=== PATIENT | female | born 1945 | race Caucasian/White ===

== ENCOUNTER 2019-09-11 05:41 | Inpatient (IN) ==
[2019-09-11] MEDS ORDERED: POLYETHYLENE (MIRALAX) 17 GM PACK PO PRN (07:34)
[2019-09-11] MEDS ORDERED: ONDANSETRON INJ 2 MG/ML 2 ML VIAL IV PRN (07:34)
[2019-09-11] MEDS ORDERED: ACETAMINOPHEN 325 MG TAB PO PRN (07:34)
--- OUTSIDE RECORDS SUMMARY | 2019-09-11 07:45 | External Medical Summary | Continuity of Care Document ---
:1945 Author Name Laly Gann, Provider Address Unavailable Unavailable , Care Team Providers Name Role Phone [facility] Sanjuanita, Provider Unavailable [email or web address] [email or web address], UNKNOWN Unavailable Unavailable Problems Active medical history not documented Allergies and Adverse Reactions Allergy history not documented Medications Medications not documented Procedures Procedures not documented Immunizations Immunizations not documented Plan of Treatment Planned Observations Planned Goals not documented Results No Known Results Results not documented
[2019-09-11 08:44] LABS: INR 1.5 (0.9-1.1); Prothrombin Time 15.4 Seconds (9.0-12.0)
[2019-09-11 08:47] LABS: Est GFR (African American) 40.7; Est GFR (Non-African American) 35.1
[2019-09-11] MEDS ORDERED: ALBUT/IPRATROP 3MG/0.5MG NEB 3 ML VIAL NEB PRN (09:21)
[2019-09-11] MEDS ORDERED: SODIUM CHLORIDE 0.9% 1000ML 1,000 ML IV SCH (09:30)
[2019-09-11] MEDS ORDERED: CEFEPIME 1,000 MG in SYRINGE 0 ML IV ONE (09:45)
--- NOTE | 2019-09-11 10:02 | Medical Student H&P ---
Date of Service September 11, 2019 Assessment & Plan (1) S/P TKR (total knee replacement): (2) Hospital acquired PNA: Continue antibiotic coverage with double coverage of psuedomonas (expected hospital aquired pneumonia). Give IV NS for fluid resuscitation. Possible sputum culture. (3) Lung mass: Possible risk for recurrent infection. Consult Pulmonology to review CT and see if they can perform biopsy. If not she may need to see cardiothoractic surgery elsewhere. (4) Acute kidney injury: IV Fluids and monitor BUN and Cr. History of Present Illness Primary Care Provider: NO PCP Mrs. Barcenas is a 74 year old female who is being transferred from [place]. EMS initially picked up Rita due to a fall with decreased consciousness. EMS found an SpO2 of 72% which improved to 84% with 6L O2, so she was brought to the ED. [facility] lue[facility]ocytosis at 12.79 with a left shit (79.3%) and metabolic acidosis with an anion gap of 10.8 consistent with MARLEY due to dehydration. A chest CT was done and showed suspected pnuemonia, and un right upper lobe mass with enlarged suprahilar lymph nodes with concern for malignancy. She was given cefipime and vancomycin for suspected pneumonia. Rita was transferred to [facility] due to a lack of beds. Today Rita is short of breath and is having a hard time talking. It is easier for her to talk and breath sitting upright. She reports that she has been SOB and has had a cough for over a week. She reports that she has had pneumonia twice before. Allergies Allergy/AdvReac Type Severity Reaction Status Date / Time ibuprofen AdvReac Unknown GI upset Verified 11/13/14 09:06 Home Medications Home Medications Medication Instructions Recorded Confirmed Type Alprazolam (Xanax) 1 mg PO HS PRN #0 06/11/10 History Lamotrigine (Lamictal) 200 mg PO QAM #0 06/11/10 History Montelukast (Singulair *) 10 mg PO QAM #0 06/11/10 History OMEPRAZOLE (PRILOSEC) 20 mg PO QAM #0 06/11/10 History Carvedilol (Coreg *) 3.125 mg PO BID #0 06/12/10 History Citalopram (Celexa *) 60 mg PO QAM #0 06/12/10 History Multivitamins/Minerals (Mvi With 1 tab PO QPM #0 06/12/10 History Minerals) Lisinopril (Zestril) 10 mg PO QAM #0 06/15/10 History CYANOCOBALAMIN (VITAMIN B12) 1,000 mcg PO QPM #0 10/16/14 History Cholecalciferol (Vitamin D3) 1,000 unit PO QPM #0 10/16/14 History Magnesium Oxide (Magnesium) 400 mg PO QPM #0 10/16/14 History Tocopheryl Acet,Dl-Alpha (Vitamin 400 inter.unit PO QPM #0 cap 10/16/14 History E) Aspirin 325 mg PO BID 28 Days #0 11/15/14 Rx Docusate Sodium 100 mg PO BID #30 cap 11/15/14 Rx Hydrocodone/Acetaminophen 1 - 2 tab PO Q4H PRN #90 tab 11/15/14 Rx 5MG/325MG ([place] 5MG/325MG) Oxycodone HCl (Oxycontin) 10 mg PO BIDM #20 11/15/14 Rx Past Med/Surg History Medical History (Updated 09/11/19 @ 10:06 by Mattie Patel) Bipolar 1 disorder (Acute) Carpal tunnel syndrome (Acute) COPD (chronic obstructive pulmonary disease) (Acute) Coronary artery disease (CAD) excluded (Acute) Myocardial infarct (Acute) Sleep apnea (Acute) Family History (Updated 09/11/19 @ 09:58 by Mattie Patel) Father Cancer Mother Cancer Other Asthma COPD (chronic obstructive pulmonary disease) Denies family history of Alzheimer disease Social History (Updated 09/11/19 @ 09:57 by Mattie Patel) Smoking Status: Current every day smoker Tobacco Type: Cigarettes Age Started Using Tobacco: 15; packs per day: 1; Hx Alcohol Use: Yes Hx Substance Use: Yes marital status: single Current Living Situation: Alone current occupational status: retired How many Children do You have: 0 Review of Systems + fever, + sweats and + anorexia + cough, + chest congestion, + change in sputum, + dyspnea and + pain on inspiration Physical Exam Constitutional: + ill appearing, + obese and + lethargic Eyes: PERRL and EOM intact bilaterally ENMT: external ear and nose normal, oropharynx normal Neck: trachea midline, no thyromegaly normal visual inspection Thyroid: normal thyroid Respiratory: + respiratory distress and normal percussion Auscultation: + crackles, + rales and + egophony Cardiovascular: RRR, no murmur, no edema Chest (Breasts): normal inspection/palpation of breasts Gastrointestinal (Abdomen): Inspection/Auscultation: abdomen normal to inspection Percussion/Palpation: abdomen soft Musculoskeletal: no cyanosis or clubbing, extremities motor strength 5/5 Skin: no rashes, warm and dry Neurologic: PERRL, EOMI, accommodation nl, no face palsy, no dysarthria normal touch/pain/proprioception Psychiatric: A+Ox3, euthymic affect Lymphatic: no cervical or axillary lymphadenopathy Code Status & VTE Plan VTE Prophylaxis Plan VTE Prophylaxis will be ordered: Yes
[2019-09-11] MEDS: PATIENT'S HEIGHT AND/OR WEIGHT NEEDED SCH (10:32)
[2019-09-11] MEDS ORDERED: levoFLOXacin 750 MG TAB PO SCH (11:00)
--- NOTE | 2019-09-11 11:03 | History & Physical Report ---
Date of Service September 11, 2019 Assessment & Plan (1) HCAP (healthcare-associated pneumonia): recent pneumonia, now with productive cough, confusion, pneumonia on CT will treat with Cefepime and Levaquin initially, she received Vanco at [place], check MRSA nasal swab here repeat labs in the afternoon, including CBC, CMP, procalcitonin, coags Duonebs QID and q2 PRN gentle fluids at 80cc/hr, NSS consult pulmonology not just for the recurrent pneumonia but for recommendations on spiculated nodule (2) Acute kidney injury: Cr 1.9 at [facility], received fluids likely prerenal as repeat Cr here this morning down to 1.4 follow UO closely, follow electrolytes hold lisinopril and avoid other nephrotoxins (3) Lung nodule seen on imaging study: 50-60 pack year history of smoking will have CT uploaded to our system so radiology and pulmonology can view consult pulmonology for recommendations per patient's friend Ismael, patient knows about the lung mass wants no work up, no treatment, comfort would be her goal (4) Tobacco abuse: still smokes a few cigarettes a day, heavy smoking history counseled on quitting (5) COPD (chronic obstructive pulmonary disease): no wheezing, has a wet cough, rhonchi bilaterally no role for steroids at this time Duonebs as ordered above (6) Confusion and disorientation: patient believes she is in [facility] cannot give me any details of recent history, does not remember coming to hospital per reports she was found down in her home, hypoxic on room air her friend Ismael talked to her on the phone, confirms that she is not herself use Ativan and Haldol PRN for agitation (7) Goals of care, counseling/discussion: long discussion with patient's friend Ismael who is her primary contact patient is aware of lung cancer, was even told she has lung mets she does not want work up, does not want treatment, she only wants to be comfortable she stated to Ismael on several occasions that she does not want life saving measures she has a living will filled out at her apartment but has not signed it made the patient DNR/DNI will use Haldol IM and Ativan IV PRN for aggitation, try to get her to cooperate with care if possible Admission and Anticipated Discharge Date Admission Date: September 11, 2019 History of Present Illness Chief Complaint: I don't know what I am doing here Primary Care Provider: NO PCP 74 yo female with history of COPD who was transferred early this morning to [facility] from [facility]. The patient was brought to the ED by EMS after she was found on the floor of her home, she was confused, decreased responsiveness and her oxygen saturation was reported to be in the low 70's on room air. She was rushed to the ED at [facility]. Her vitals were stable, no fever. CT of the chest showed a right upper lobe mass with a right sided pleural effusion. There was also evidence of pneumonia on the right side. Per records, she was just treated for a right sided obstructive pneumonia at [facility] a few weeks ago. Transfer was requested because there were no beds at [place]. She was given one liter NSS and Cefepime and Vancomycin. Upon her arrival the patient stated that she just wanted to go home, she did not know why she was in the hospital, she thought she was in [facility]. She could not provide any real history. I discussed the CT chest findings of the mass and she seemed to know that she had a potential lung cancer but could not provide any further history. I called her primary contact, her best friend Ismael Herrmann. She could tell me what the patient has told her over the past weeks, she admits that she never has gone to the doctor's office with her and she has not spoken directly to her doctors in the [facility] system. She said that the patient has told her that she has a lesion in her lung, likely lung cancer. She also has told her that she had imaging of her brain and her doctor told her that she has brain mets. She has had weakness in her right arm and hand the past three weeks and she was told that this is due to the mets. The patient has been very clear to Ismael that she wants nothing done for the lung lesion. She does not want any biopsy, she does not want any treatment. She has been clear that she wants to be comfortable above all else. I asked her if she has a living will and if Ismael is her POA. She says that she has not completed that paper work but she knows that she has a living will form in her apartment that she has not signed. She said that she has clearly told her that she would not want heroic measures, she should be a DNR, DNI. I called the patient's brother Kit. He is the only living relative. He has had two strokes and a heart attack in the past year. His told me that he is forgetful. She says that they have not seen the patient in some time because Kit cannot drive, they live in the [place] area. His confirmed that Ismael is the patient's closest friend and knows her wishes and knows what has been going on recently better than they know. Allergies Allergy/AdvReac Type Severity Reaction Status Date / Time ibuprofen AdvReac Unknown GI upset Verified 11/13/14 09:06 Home Medications Home Medications Medication Instructions Recorded Confirmed Type Alprazolam (Xanax) 1 mg PO HS PRN #0 06/11/10 History Lamotrigine (Lamictal) 200 mg PO QAM #0 06/11/10 History Montelukast (Singulair *) 10 mg PO QAM #0 06/11/10 History OMEPRAZOLE (PRILOSEC) 20 mg PO QAM #0 06/11/10 History Carvedilol (Coreg *) 3.125 mg PO BID #0 06/12/10 History Citalopram (Celexa *) 60 mg PO QAM #0 06/12/10 History Multivitamins/Minerals (Mvi With 1 tab PO QPM #0 06/12/10 History Minerals) Lisinopril (Zestril) 10 mg PO QAM #0 06/15/10 History CYANOCOBALAMIN (VITAMIN B12) 1,000 mcg PO QPM #0 10/16/14 History Cholecalciferol (Vitamin D3) 1,000 unit PO QPM #0 10/16/14 History Magnesium Oxide (Magnesium) 400 mg PO QPM #0 10/16/14 History Tocopheryl Acet,Dl-Alpha (Vitamin 400 inter.unit PO QPM #0 cap 10/16/14 History E) Aspirin 325 mg PO BID 28 Days #0 11/15/14 Rx Docusate Sodium 100 mg PO BID #30 cap 11/15/14 Rx Hydrocodone/Acetaminophen 1 - 2 tab PO Q4H PRN #90 tab 11/15/14 Rx 5MG/325MG ([place] 5MG/325MG) Oxycodone HCl (Oxycontin) 10 mg PO BIDM #20 10/09/15 Rx Past Med/Surg History Medical History Bipolar 1 disorder (Acute) Carpal tunnel syndrome (Acute) COPD (chronic obstructive pulmonary disease) (Acute) Coronary artery disease (CAD) excluded (Acute) Myocardial infarct (Acute) Sleep apnea (Acute) Family History Father Cancer Mother Cancer Other Asthma COPD (chronic obstructive pulmonary disease) Denies family history of Alzheimer disease Social History Smoking Status: Current every day smoker Tobacco Type: Cigarettes Age Started Using Tobacco: 15; packs per day: 1; Hx Alcohol Use: Yes Hx Substance Use: Yes Preferred Language: Central African Communication Ability: Effective Third Mate Required: No Beliefs That Will Affect Care: None marital status: single Current Living Situation: Alone current occupational status: retired How many Children do You have: 0 Feels Safe at Home: Yes Safety Concerns: Feels Safe At This Time Review of Systems Review of Systems: Unobtainable due to cognitive status (confused, agitated) Physical Exam Constitutional: + ill appearing, + frail appearing, + in distress (respiratory) and + combative; + uncooperative Eyes: PERRL, conjunctivae normal, anicteric sclerae ENMT: external ear and nose normal, oropharynx normal Neck: trachea midline, no thyromegaly Respiratory: + labored breathing, + cough and + pursed lip breathing Auscultation: + diminished lung sounds (right base), + crackles and + rhonchi; no rales and no wheezes Cardiovascular: Rate/Rhythm: regular rhythm and + tachycardic Heart Sounds: normal S1 and normal S2; no murmur Extremities: normal capillary refill; no edema Gastrointestinal (Abdomen): normal bowel sounds, soft, nontender, no hepatosplenomegaly Musculoskeletal: no cyanosis or clubbing, extremities motor strength 5/5 Skin: no rashes, warm and dry Neurologic: patellar DTR's 2+ bilat, sensation intact and PERRL, EOMI, accommodation nl, no face palsy, no dysarthria Psychiatric: Orientation: alert, oriented to person and + guarded; + not oriented to place, + not oriented to time and + uncooperative Lymphatic: no cervical or axillary lymphadenopathy Results & Data Results & Data ([facility]) Vital Signs (Past 12 Hours) Vital Signs Temp Pulse Resp BP Pulse Ox 09/11/19 07:51 36.9 C 74 12 127/74 94 Laboratory Results Laboratory Results - last 24 hr 09/11/19 09/11/19 09/11/19 08:18 08:18 19:43 WBC 16.67 H RBC 3.44 L Hgb 11.1 L Hct 33.7 L MCV 98.0 MCH 32.3 MCHC 32.9 RDW Std Deviation 46.7 H RDW Coeff of Yosef 13.1 Plt Count 165 MPV 10.1 Immature Gran % (Auto) 0.5 Neut % (Auto) 77.4 Lymph % (Auto) 15.5 Norman % (Auto) 6.1 Eos % (Auto) 0.4 Baso % (Auto) 0.1 Neut # (Auto) 12.89 H Lymph # (Auto) 2.59 Norman # (Auto) 1.02 H Eos # (Auto) 0.07 Baso # (Auto) 0.02 Immature Gran # (Auto) 0.08 H PT 15.4 H INR 1.5 H APTT PTT Ratio ABG pH ABG pCO2 ABG pO2 ABG HCO3 ABG O2 Saturation ABG Base Excess Julio Test Barometric Pressure Oxygen Given Sodium Potassium Chloride Carbon Dioxide Anion Gap BUN Creatinine 1.46 H Est Cr Clr Drug Dosing Not Reportable Est GFR ( Amer) 40.7 Est GFR (Non-Af Amer) 35.1 BUN/Creatinine Ratio Glucose Calcium Total Bilirubin Direct Bilirubin AST ALT Alkaline Phosphatase Total Protein Albumin Procalcitonin Nasal Screen MRSA (PCR) 09/11/19 09/11/19 09/11/19 19:43 19:43 19:43 WBC RBC Hgb Hct MCV MCH MCHC RDW Std Deviation RDW Coeff of Yosef Plt Count MPV Immature Gran % (Auto) Neut % (Auto) Lymph % (Auto) Norman % (Auto) Eos % (Auto) Baso % (Auto) Neut # (Auto) Lymph # (Auto) Norman # (Auto) Eos # (Auto) Baso # (Auto) Immature Gran # (Auto) PT 15.7 H INR 1.5 H APTT 41.9 H PTT Ratio 1.5 ABG pH ABG pCO2 ABG pO2 ABG HCO3 ABG O2 Saturation ABG Base Excess Julio Test Barometric Pressure Oxygen Given Sodium 137 Potassium 3.6 Chloride 103 Carbon Dioxide 22 Anion Gap 12.0 H BUN 23 H Creatinine 1.10 D Est Cr Clr Drug Dosing 47.7 Est GFR ( Amer) 57.3 Est GFR (Non-Af Amer) 49.4 BUN/Creatinine Ratio 21.2 H Glucose 129 H Calcium 9.0 Total Bilirubin 0.6 Direct Bilirubin 0.2 AST 50 H ALT 14 Alkaline Phosphatase 109 Total Protein 6.0 L Albumin 2.5 L Procalcitonin 0.23 Nasal Screen MRSA (PCR) 09/11/19 09/11/19 19:43 Unknown WBC RBC Hgb Hct MCV MCH MCHC RDW Std Deviation RDW Coeff of Yosef Plt Count MPV Immature Gran % (Auto) Neut % (Auto) Lymph % (Auto) Norman % (Auto) Eos % (Auto) Baso % (Auto) Neut # (Auto) Lymph # (Auto) Norman # (Auto) Eos # (Auto) Baso # (Auto) Immature Gran # (Auto) PT INR APTT PTT Ratio ABG pH 7.30 L ABG pCO2 47 H ABG pO2 64 L ABG HCO3 22 ABG O2 Saturation 87.6 L ABG Base Excess -4.3 Julio Test Pos Barometric Pressure 728.7 Oxygen Given 6 L Sodium Potassium Chloride Carbon Dioxide Anion Gap BUN Creatinine Est Cr Clr Drug Dosing Est GFR ( Amer) Est GFR (Non-Af Amer) BUN/Creatinine Ratio Glucose Calcium Total Bilirubin Direct Bilirubin AST ALT Alkaline Phosphatase Total Protein Albumin Procalcitonin Nasal Screen MRSA (PCR) Negative Code Status & VTE Plan VTE Prophylaxis Plan VTE Prophylaxis will be ordered: Yes PG Care Time/CCT Total # of Minutes Spent Total Time Spent: 100 Total Time Spent with Patient: Total time spent is greater than 50% in coordination of care (as documented) at patient's floor/unit and/or counseling patient: Coding Level of Care Code 53044 Initial Inpt Care Lvl 3 Diagnoses HCAP (healthcare-associated pneumonia) J18.9 Acute kidney injury N17.9 Lung nodule seen on imaging study R91.1 Tobacco abuse Z72.0 COPD (chronic obstructive pulmonary disease) J44.9 Confusion and disorientation R41.0 Goals of care, counseling/discussion Z71.89
[2019-09-11] MEDS: ALBUT/IPRATROP 3MG/0.5MG NEB 3 ML VIAL NEB SCH ×3 (11:24→19:22)
[2019-09-11] MEDS: ENOXAPARIN INJ 40 MG/0.4 ML SYR SQ SCH (11:34)
--- NOTE | 2019-09-11 13:45 | Pulmonary Consultation ---
Date of Consultation September 11, 2019 Assessment & Plan (1) Lung mass: Patient has a 2.1 x 2 x 2.1 cm spiculated mass within the right upper lobe. This seems to be enlarged from CT contrast 05/25/2019 where he was previously found to be 1.4 x 1.6 x 1.2 cm Images are not available in PACS but report was acquired from [facility] We do have a CD with images with viewing software from [employer]. We will have Dr. Whitten review images to determine plan of action Patient was significant past tobacco abuse history including cigarettes and marijuana. Current everyday smoker (2) Hospital acquired PNA: Patient reports that she had pneumonia previously She is found to have some consolidation in the right middle loop as well as groundglass opacities in the right lower lobe Agree with treating with antibiotics We will also add flutter valve and incentive spirometer Currently 96% on 3 L/min via nasal cannula No acute respiratory distress (3) Tobacco abuse: Patient admits to smoking cigarettes daily but says that she has cut back Discussed need for abstention of tobacco products to which patient started to laugh and stated that she was too old to quit (4) COPD (chronic obstructive pulmonary disease): Unknown if patient has had pulmonary function testing in the past She is unsure if she has seen a shareholder or has been formally diagnosed with lung disease She is unaware of any malignancy, mass, nodules although they are present on c hest x-ray and CT chest Continue with duo nebs for now We will also add incentive spirometry and flutter valve No indication for steroids at this time Thank you very much for including us in the care of this patient. We will continue to follow along with you and help develop a plan of care. Please refer to Dr. Whitten's addendum for further recommendations and corrections. Supervising Physician Co-Signing Physician Notes Pt seen and examined with Westley Patterson PA-C. Agree with A/P as outlined unless otherwise noted: Suspect likely stage 4 disease given pleural effusion. Also, upon discussion with hospitalist, patient reportedly had evidence of brain mets on prior imaging and refused biopsy and treatment. At this time, patient is highly verbally combative and clearly delirious. Consider hypercalcemia, hypercapnia and brain mets as source of confusion. Patient apparently refused labs. Will follow peripherally for now. Please call if condition changes and patient or POA would like to purse tissue sample. Would treat post-obstructive pna with 7 days of abx. Thanks for the consult. History of Present Illness Attending Physician: Beka Knight DO History of Present Illness Attending: Dr. Whitten Is a 74-year-old female with a past medical history of ethanol abuse, anxiety, asthma, bipolar disease, CAD, COPD, degenerative joint disease, depression, falls, fibromyalgia, GERD, hyperlipidemia, hypertension, marijuana use, obesity, osteoarthritis of knee, panic attacks, pulmonary nodule, sleep apnea, urinary incontinence. The patient presented to the [place] emergency room for shortness of breath. She was brought by ambulance and was found to be on the floor at home where she slipped out of a chair. Initial oxygen saturation for EMS on room air was 72%. She was placed on a 15 L nonrebreather and recovered to greater than 90%. She reports that she had increased shortness of breath for the last day or 2 and feels it is recurrent pneumonia. She denies any significant sputum production over the last 2 or 3 days but today notes whitish type sputum. She seems to be somewhat demented during the course of my examination but is easily reoriented. She denies any fever or chills. She has no hemoptysis. She has no myalgias or arthralgias. She denies any other recent sick contacts. The patient lives that [facility] which is a senior citizen apartment building. She states that she uses her motorized wheelchair to go shopping at the [employer] next door to her complex. She initially stated that she had no children but then states that she has children out of the area. She lives alone and has no pets. She denies any prior history of malignancy. When asked about imaging at [place] she denies chest x-ray or CAT scan and is unaware of a pul monary nodule or mass. Allergies Allergy/AdvReac Type Severity Reaction Status Date / Time ibuprofen AdvReac Unknown GI upset Verified 11/13/14 09:06 Home Medications Home Medications Medication Instructions Recorded Confirmed Type Alprazolam (Xanax) 1 mg PO HS PRN #0 06/11/10 History Lamotrigine (Lamictal) 200 mg PO QAM #0 06/11/10 History Montelukast (Singulair *) 10 mg PO QAM #0 06/11/10 History OMEPRAZOLE (PRILOSEC) 20 mg PO QAM #0 06/11/10 History Carvedilol (Coreg *) 3.125 mg PO BID #0 06/12/10 History Citalopram (Celexa *) 60 mg PO QAM #0 06/12/10 History Multivitamins/Minerals (Mvi With 1 tab PO QPM #0 06/12/10 History Minerals) Lisinopril (Zestril) 10 mg PO QAM #0 06/15/10 History CYANOCOBALAMIN (VITAMIN B12) 1,000 mcg PO QPM #0 10/16/14 History Cholecalciferol (Vitamin D3) 1,000 unit PO QPM #0 10/16/14 History Magnesium Oxide (Magnesium) 400 mg PO QPM #0 10/16/14 History Tocopheryl Acet,Dl-Alpha (Vitamin 400 inter.unit PO QPM #0 cap 10/16/14 History E) Aspirin 325 mg PO BID 28 Days #0 11/15/14 Rx Docusate Sodium 100 mg PO BID #30 cap 11/15/14 Rx Hydrocodone/Acetaminophen 1 - 2 tab PO Q4H PRN #90 tab 11/15/14 Rx 5MG/325MG ([place] 5MG/325MG) Oxycodone HCl (Oxycontin) 10 mg PO BIDM #20 11/15/14 Rx Patient History Medical History Bipolar 1 disorder (Acute) Carpal tunnel syndrome (Acute) COPD (chronic obstructive pulmonary disease) (Acute) Coronary artery disease (CAD) excluded (Acute) Myocardial infarct (Acute) Sleep apnea (Acute) Family History Father Cancer Mother Cancer Other Asthma COPD (chronic obstructive pulmonary disease) Denies family history of Alzheimer disease Social History Smoking Status: Current every day smoker Tobacco Type: Cigarettes Age Started Using Tobacco: 15; packs per day: 1; Hx Alcohol Use: Yes Hx Substance Use: Yes Preferred Language: Indonesian Communication Ability: Effective Manager Utilization Required: No Beliefs That Will Affect Care: None marital status: single Current Living Situation: Alone current occupational status: retired How many Children do You have: 0 Feels Safe at Home: Yes Safety Concerns: Feels Safe At This Time Review of Systems Review of Systems: All systems reviewed & are unremarkable except as noted in HPI & below Physical Exam Physical Exam: GENERAL : No acute distress EYES: No icterus, gaze conjugate NOSE: No evidence of epistaxis MOUTH: No lesions or candidiasis NECK: Supple LUNGS: Patient has coarse rales at the bilateral bases. There is also some evidence above her field rhonchi. HEART: Regular, rate controlled ABDOMEN: Soft, NT, ND, BS Present EXTREMITIES: No LE edema, pedal pulses intact NEURO: A&OX3 with some confusion. Easily reoriented. Results & Data Results & Data ([facility]) Vital Signs (Past 12 Hours) Vital Signs Temp Pulse Pulse Resp BP Pulse Ox 09/11/19 12:02 36.9 C 77 19 130/72 96 09/11/19 11:26 76 22 97 09/11/19 07:51 36.9 C 74 12 127/74 94 Laboratory Results 09/11/19 08:18 INR 1.5 (0.9-1.1) H 09/11/19 08:[address] thorax with contrast 09/11/2019 1:11 AM Findings: Lungs: Diffuse interlobular septal thickening seen throughout the right lung wor se in the right lung apex. Interval increase in size of a spiculated mass within the right upper lobe along the minor fissure measuring 2.1 x 2 x 2.1 cm. This was previously measured at 1.4 x 1.6 x 1.2 cm. There is a small consolidation in the dependent aspect of the right middle lobe and diffuse groundglass opacities seen throughout the right lower lobe. This is most likely subsegmental atelectasis. Pleural space: There is also a moderate-sized pleural effusion on the right. There is no evidence of pneumothorax. Lymph nodes: There is no mediastinal or axillary adenopathy. There is soft tissue prominence in the right suprahilar region suspect to represent enlarged hilar lymph node. PG Care Time/CCT Total # of Minutes Spent Total Time Spent with Patient: Total time spent is greater than 50% in coordination of care (as documented) at patient's floor/unit and/or counseling patient: 65 minutes including interview and discussion with patient, discussion with Dr. Whitten, discussion with primary team, and obtaining records and images from outside hospital. Coding Level of Care Code 92387 Inpt Consult Level 5 Diagnoses Lung mass R91.8 Hospital acquired PNA J18.9; Y95 Tobacco abuse Z72.0 COPD (chronic obstructive pulmonary disease) J44.9
[2019-09-11] MEDS: LORazepam 0.5 MG/1 ML VIAL IV PRN ×2 (15:44→23:35)
[2019-09-11] MEDS: HALOPERIDOL LACTATE 5 MG/ML 1 ML VIAL IM PRN ×2 (17:25→23:35)
[2019-09-11] MEDS: CEFEPIME 2,000 MG in SYRINGE 7.5 ML IV SCH (19:53)
[2019-09-11 19:56] LABS: Basophils # (auto) 0.02 K/uL (0-0.2); Basophils % (auto) 0.1 %; Eosinophils # (auto) 0.07 K/uL (0-0.5); Eosinophils % (auto) 0.4 %; Hematocrit (blood only) 33.7 % (37-47); Hemoglobin 11.1 g/dL (12.0-16.0); Immature Granulocytes # (auto) 0.08 K/uL (0.00-0.02); Immature Granulocytes % (auto) 0.5 %; Lymphocytes # (auto) 2.59 K/uL (1.2-3.4); Lymphocytes % (auto) 15.5 %; Mean Corpuscular Hemoglobin 32.3 pg (25-34); Mean Corpuscular Hgb Conc 32.9 g/dL (32-36); Mean Platelet Volume 10.1 fL (7.4-10.4); Monocytes # (auto) 1.02 K/uL (0.11-0.59); Monocytes % (auto) 6.1 %; Neutrophils # (auto) 12.89 K/uL (1.4-6.5); Neutrophils % (auto) 77.4 %; Platelet Count 165 K/uL (130-400); RDW Coefficient of Variation 13.1 % (11.5-14.5); RDW Standard Deviation 46.7 fL (36.4-46.3); Red Blood Count 3.44 M/uL (4.2-5.4); White Blood Count 16.67 K/uL (4.8-10.8)
[2019-09-11] MEDS ORDERED: MoRPHine SULFATE 2 MG/ML CARP IV STA (19:57)
[2019-09-11] MEDS ORDERED: LORazepam 1 MG/2 ML VIAL IV STA (19:57)
[2019-09-11 20:03] LABS: INR 1.5 (0.9-1.1); Partial Thromboplastin Ratio 1.5; Partial Thromboplastin Time 41.9 Seconds (21.0-31.0); Prothrombin Time 15.7 Seconds (9.0-12.0)
[2019-09-11 20:04] LABS: Allen Test Pos (Pos); Base Excess ABG -4.3 mEq/L (-9-1.8); HCO3 ABG 22 mmol/L (19-24); Oxygen Saturation ABG 87.6 % (90-95); PCO2 ABG 47 mmHg (35-46); PO2 ABG 64 mmHg (80-95)
[2019-09-11 20:12] LABS: Albumin Level 2.5 gm/dl (3.4-5.0); BUN Creatinine Ratio 21.2 (10-20); Bilirubin Direct 0.2 mg/dl (0-0.2); Creatinine Clr Calc Pharmacy 47.7 ml/min; Est GFR (African American) 57.3; Est GFR (Non-African American) 49.4; Potassium 3.6 mmol/L (3.5-5.1)
[2019-09-11 20:15] LABS: Bilirubin,Total 0.6 mg/dl (0.2-1)
[2019-09-11] MEDS ORDERED: FUROSEMIDE 20 MG in SYRINGE 0 ML IV ONE (20:15)
[2019-09-11] MEDS ORDERED: FUROSEMIDE 40 MG/4 ML VIAL IV ONE (20:25)
[2019-09-12 06:45] LABS: Basophils # (auto) 0.02 K/uL (0-0.2); Basophils % (auto) 0.1 %; Eosinophils # (auto) 0.07 K/uL (0-0.5); Eosinophils % (auto) 0.5 %; Hematocrit (blood only) 31.7 % (37-47); Hemoglobin 10.8 g/dL (12.0-16.0); Immature Granulocytes # (auto) 0.07 K/uL (0.00-0.02); Immature Granulocytes % (auto) 0.5 %; Lymphocytes # (auto) 1.49 K/uL (1.2-3.4); Lymphocytes % (auto) 10.6 %; Mean Corpuscular Hemoglobin 33.3 pg (25-34); Mean Corpuscular Hgb Conc 34.1 g/dL (32-36); Mean Corpuscular Volume 97.8 fL (80-100); Mean Platelet Volume 10.3 fL (7.4-10.4); Monocytes # (auto) 1.13 K/uL (0.11-0.59); Neutrophils # (auto) 11.28 K/uL (1.4-6.5); Neutrophils % (auto) 80.3 %; Platelet Count 134 K/uL (130-400); RDW Coefficient of Variation 13.2 % (11.5-14.5); RDW Standard Deviation 46.6 fL (36.4-46.3); Red Blood Count 3.24 M/uL (4.2-5.4); White Blood Count 14.06 K/uL (4.8-10.8)
[2019-09-12 07:03] LABS: BUN Creatinine Ratio 26.1 (10-20); Calcium 8.5 mg/dl (8.5-10.1); Creatinine Clr Calc Pharmacy 59.7 ml/min; Est GFR (Non-African American) 64.7; Magnesium 1.2 mg/dl (1.8-2.4); Potassium 3.6 mmol/L (3.5-5.1)
[2019-09-12] MEDS: ALBUT/IPRATROP 3MG/0.5MG NEB 3 ML VIAL NEB SCH ×4 (07:07→18:57)
[2019-09-12] MEDS: MONTELUKAST SODIUM 10 MG TABLET PO SCH (08:03)
[2019-09-12] MEDS: PANTOprazole 40 MG TAB PO SCH (08:03)
[2019-09-12] MEDS: CITALOPRAM 40 MG TAB PO SCH (08:03)
[2019-09-12] MEDS: lamoTRIgine 100 MG TAB PO SCH (08:03)
[2019-09-12] MEDS: ENOXAPARIN INJ 40 MG/0.4 ML SYR SQ SCH (08:03)
[2019-09-12] MEDS: LORazepam 0.5 MG/1 ML VIAL IV PRN (08:05)
[2019-09-12] MEDS: CEFEPIME 2,000 MG in SYRINGE 7.5 ML IV SCH ×2 (08:29→20:17)
[2019-09-12] MEDS: MAGNESIUM SULFATE / D5W 1 GM/100 ML BAG IV SCH ×2 (09:37→11:10)
--- NOTE | 2019-09-12 09:44 | Medical Student Progress Note ---
Date of Service September 12, 2019 Assessment & Plan (1) S/P TKR (total knee replacement): (2) Hospital acquired PNA: Continue antibiotic coverage with double coverage of psuedomonas (expected hospital aquired pneumonia). Cefepime and Levoquin. Give IV NS for fluid resuscitation. Continue oxygen saturation, incentive spirometry and flutter valve therapy. (3) Lung mass: Per friend Marisela she does not want treatment for mass. Hold any diagnostic or tx procedures. Discuss with Rita when she is oriented. (4) Acute kidney injury: IV Fluids and monitor BUN and Cr. Cr and BUN lowered today. (5) Disorientation: PRN haloperidol and ativan. Suspect improvement with lessening of infection. Subjective Rita is a 74 year old women with a PMHx of HTN COPD SD GERD Sleep apnea and BPD who was transferred from [facility] with suspected pneumonia complicated by an upper lobe mass and a prerenal MARLEY consistent with dehydration. CT confirmed pneumonia with middle R lobe consolidation with ground glass opacities with a 1.4x1.6x1.2 cm mass in the upper R lobe. She was disoriented upon arrival and unaware of her surroundings, so her friend (primary contact) was contacted for background on her wishes. Friend reports that she knows about the mass and does not wish to receive treatment for it. For her disorientation PRN IM haliperodol and IV ativan was perscribed. Cefepime and Levoquin was prescribed for pneumonia. A flutter valve and incentive spirometer was also given.MRSA nasal swab was negative. NS was given for MARLEY and lisinopril was held. Overnight she was given haloperidol and recieved ativan this morning. She is still quite agitated and is not oriented to place. She is clearly in pain and repeats help me please repeatedly. She desatted to 84% on the NC so she was given an oxygen mask 6L/m and is now at 93%. Creatinine is now in normal range at .88 (down from 1.9). BUN is still elevated at 23. Most recent labs show a luekocytosis at 14.06 with a nuetrophillic predominance. Review of Systems Constitutional: + fever, + sweats and + anorexia Respiratory: + cough, + chest congestion, + change in sputum, + dyspnea and + pain on inspiration Psychiatric: + anxiety and + confusion Physical Exam Constitutional: + ill appearing, + obese and + lethargic Eyes: PERRL and EOM intact bilaterally ENMT: external ear and nose normal, oropharynx normal Neck: trachea midline, no thyromegaly normal visual inspection Thyroid: normal thyroid Respiratory: + respiratory distress and normal percussion Auscultation: + crackles, + rales and + egophony Cardiovascular: RRR, no murmur, no edema Chest (Breasts): normal inspection/palpation of breasts Gastrointestinal (Abdomen): Inspection/Auscultation: abdomen normal to inspection Percussion/Palpation: abdomen soft Musculoskeletal: no cyanosis or clubbing, extremities motor strength 5/5 Skin: no rashes, warm and dry Neurologic: PERRL, EOMI, accommodation nl, no face palsy, no dysarthria normal touch/pain/proprioception Psychiatric: A+Ox3, euthymic affect Lymphatic: no cervical or axillary lymphadenopathy Results & Data ([facility]) Vital Signs (Past 12 Hours) Vital Signs Temp Pulse Pulse Resp BP Pulse Ox 09/12/19 07:39 36.8 C 96 H 24 148/73 H 90 09/12/19 07:07 91 H 22 97 09/12/19 03:18 36.8 C 88 21 136/81 93 09/12/19 00:00 93 H 09/11/19 23:49 36.7 C 91 H 26 H 109/35 L 94 09/11/19 22:17 97
[2019-09-12] MEDS ORDERED: methylPREDNISolone 40 MG in SYRINGE 0 ML IV STA (10:25)
[2019-09-12] MEDS: MoRPHine SULFATE 2 MG/ML CARP IV PRN ×4 (10:32→23:21)
[2019-09-12] MEDS ORDERED: DiphenhydrAMINE HCL 50 MG/ML VIAL IV STA (11:35)
[2019-09-12] MEDS ORDERED: MoRPHine SULFATE 4 MG/ML 1 ML CARP\\VIAL IV STA (11:35)
[2019-09-12] MEDS: PATIENT'S HEIGHT AND/OR WEIGHT NEEDED SCH (13:07)
[2019-09-12] MEDS ORDERED: LEVOFLOXACIN/D5W 750 MG/150 ML BAG IV SCH (16:00)
[2019-09-12] MEDS ORDERED: levoFLOXacin 750 MG TAB PO SCH (16:00)
[2019-09-12] MEDS ORDERED: DiphenhydrAMINE HCL 50 MG/ML VIAL IV PRN (16:55)
[2019-09-12] MEDS: methylPREDNISolone 40 MG in SYRINGE 0 ML IV SCH (20:18)
--- NOTE | 2019-09-12 22:18 | Hospitalist Progress Note ---
Date of Service September 12, 2019 Assessment & Plan (1) HCAP (healthcare-associated pneumonia): recent pneumonia, now with productive cough, confusion, pneumonia on CT will treat with Cefepime and Levaquin IV, MRSA swab negative Duonebs QID and q2 PRN continue gentle fluids at 80cc/hr, NSS as she is not eating more labored breathing today using Morphine PRN for comfort as her friend Ismael stated that patient would not want to be in distress (2) Acute kidney injury: Cr 1.9 at [place], received fluids likely prerenal as repeat Cr down to 0.88 today follow UO closely, follow electrolytes, childs placed hold lisinopril and avoid other nephrotoxins (3) Lung nodule seen on imaging study: 50-60 pack year history of smoking per patient's friend Ismael, patient knows about the lung mass wants no work up, no treatment, comfort would be her goal using Morphine for comfort (4) Tobacco abuse: still smokes a few cigarettes a day, heavy smoking history counseled on quitting but unlikely to stop smoking (5) COPD (chronic obstructive pulmonary disease): today with more wheezing on the right, has mild COPD exacerbation treat with Solu Medrol, duonebs, antibiotics (6) Confusion and disorientation: patient agitated, confused, in distress cannot give me any details of recent history, does not remember coming to hospital per reports she was found down in her home, hypoxic on room air her friend Ismael talked to her on the phone, confirms that she is not herself use Ativan and Haldol PRN for agitation Morphine for respiratory distress (7) Goals of care, counseling/discussion: long discussion with patient's friend Ismael who is her primary contact on 09/10 after admission patient is aware of lung cancer, was even told she has brain mets she does not want work up, does not want treatment, she only wants to be comfortable she stated to Ismael on several occasions that she does not want life saving measures she has a living will filled out at her apartment but has not signed it made the patient DNR/DNI will use Haldol IM and Ativan IV PRN for aggitation use Morphine for any respiratory discomfort prognosis is very poor, unlikely to survive this hospitalization if she would improve then she would need to be placed in SNF on hospice as she cannot live alone any more (8) Hypomagnesemia: replace IV today Admission and Anticipated Discharge Date Admission Date: September 11, 2019 Subjective patient confused and agitated today labored breathing, appears uncomfortable attempted to speak with her friend Ismael, no answer twice patient more comfortable after Morphine 4mg IV and Benadryl IV more wheezing on right side, added Solu Medrol d/w RN several times, goal is comfort but will treat PNA and COPD Review of Systems Review of Systems: Unobtainable due to cognitive status Physical Exam Constitutional: + ill appearing, + frail appearing, + in distress (respiratory) and + combative; + uncooperative Eyes: PERRL, conjunctivae normal, anicteric sclerae ENMT: external ear and nose normal, oropharynx normal Neck: trachea midline, no thyromegaly Respiratory: + labored breathing, + cough and + pursed lip breathing Auscultation: + diminished lung sounds (right base), + crackles, + rhonchi and + wheezes (more on right); no rales Cardiovascular: Rate/Rhythm: regular rhythm and + tachycardic Heart Sounds: normal S1 and normal S2; no murmur Extremities: normal capillary refill; no edema Gastrointestinal (Abdomen): normal bowel sounds, soft, nontender, no hepatosplenomegaly Musculoskeletal: no cyanosis or clubbing, extremities motor strength 5/5 Skin: no rashes, warm and dry Neurologic: patellar DTR's 2+ bilat, sensation intact and PERRL, EOMI, accommodation nl, no face palsy, no dysarthria Psychiatric: Orientation: alert, oriented to person and + guarded; + not oriented to place, + not oriented to time and + uncooperative Lymphatic: no cervical or axillary lymphadenopathy Results & Data Results & Data ([facility]) Vital Signs (Past 12 Hours) Vital Signs Temp Pulse Resp BP Pulse Ox 09/12/19 20:28 37.0 C 76 20 142/69 H 95 09/12/19 18:58 84 21 95 09/12/19 16:03 36.9 C 83 18 135/76 96 09/12/19 15:33 81 18 96 09/12/19 11:29 73 26 H 97 09/12/19 11:21 37.5 C 97 H 22 124/63 95 Laboratory Results Laboratory Results - last 24 hr 09/12/19 09/12/19 05:57 05:57 WBC 14.06 H RBC 3.24 L Hgb 10.8 L Hct 31.7 L MCV 97.8 MCH 33.3 MCHC 34.1 RDW Std Deviation 46.6 H RDW Coeff of Yosef 13.2 Plt Count 134 MPV 10.3 Immature Gran % (Auto) 0.5 Neut % (Auto) 80.3 Lymph % (Auto) 10.6 [place] % (Auto) 8.0 Eos % (Auto) 0.5 Baso % (Auto) 0.1 Neut # (Auto) 11.28 H Lymph # (Auto) 1.49 [place] # (Auto) 1.13 H Eos # (Auto) 0.07 Baso # (Auto) 0.02 Immature Gran # (Auto) 0.07 H Sodium 139 Potassium 3.6 Chloride 105 Carbon Dioxide 25 Anion Gap 9.0 BUN 23 H Creatinine 0.88 Est Cr Clr Drug Dosing 59.7 Est GFR ( Amer) 75.0 Est GFR (Non-Af Amer) 64.7 BUN/Creatinine Ratio 26.1 H Glucose 94 Calcium 8.5 Magnesium 1.2 L Medications Administered Current Inpatient Medications Acetaminophen (Tylenol) 650 mg PO Q4H PRN PRN Reason: Pain or Fever Stop: 10/11/19 07:33 Albuterol (Duoneb) 3 ml NEB QIDR [facility] Stop: 10/11/19 10:59 Last Admin: 09/12/19 18:57 Dose: 3 ml Documented by: Albuterol (Duoneb) 3 ml NEB Q2R PRN PRN Reason: Dyspnea Stop: 10/11/19 09:20 Citalopram Hydrobromide (Celexa) 60 mg PO QAM [facility] Stop: 10/12/19 08:59 Last Admin: 09/12/19 08:03 Dose: Not Given Documented by: Diphenhydramine HCl (Benadryl) 25 mg IV Q6 PRN PRN Reason: Itching Stop: 10/12/19 16:54 Enoxaparin Sodium (Lovenox) 40 mg SQ DAILY [facility] Stop: 10/11/19 11:59 Last Admin: 09/12/19 08:03 Dose: Not Given Documented by: Haloperidol Lactate (Haldol) 5 mg IM Q6H PRN PRN Reason: Anxiety/Agitation Stop: 10/11/19 14:51 Last Admin: 09/11/19 23:35 Dose: 5 mg Documented by: Cefepime HCl 2,000 mg/ Syringe 20 mls @ 5.5 mls/min IV Q12 [facility] Stop: 09/18/19 20:59 Last Infusion: 09/12/19 20:31 Dose: Infused Documented by: Lorazepam (Ativan) 0.5 mg in 1 mls @ 1 mls/min IV Q8H PRN PRN Reason: Agitation Stop: 10/11/19 15:11 Last Admin: 09/12/19 08:05 Dose: 1 mls/min Documented by: Methylprednisolone 40 mg/ (Syringe) 0.64 mls @ 1.5 mls/min IV Q12 [facility] Stop: 10/12/19 20:59 Last Admin: 09/12/19 20:18 Dose: 1.5 mls/min Documented by: Levofloxacin/Dextrose (Levaquin/D5w) 750 mg in 150 mls @ 100 mls/hr IV Q24H [facility] Stop: 09/19/19 15:59 Last Infusion: 09/12/19 18:14 Dose: Infused Documented by: Lamotrigine (Lamictal) 200 mg PO [facility] Stop: 10/12/19 08:59 Last Admin: 09/12/19 08:03 Dose: Not Given Documented by: Montelukast Sodium (Singulair) 10 mg PO [facility] Stop: 10/12/19 08:59 Last Admin: 09/12/19 08:03 Dose: Not Given Documented by: Morphine Sulfate (Morphine Sulfate) 2 mg IV Q2H PRN PRN Reason: Dyspnea Stop: 09/26/19 10:14 Last Admin: 09/12/19 20:13 Dose: 2 mg Documented by: Ondansetron HCl (Zofran) 4 mg IV Q6H PRN PRN Reason: Nausea Stop: 10/11/19 07:33 Pantoprazole Sodium (Protonix) 40 mg PO [facility]; Protocol Stop: 10/12/19 08:59 Last Admin: 09/12/19 08:03 Dose: Not Given Documented by: Polyethylene Glycol (Miralax Powder Packet) 17 gm PO DAILY PRN PRN Reason: Constipation Stop: 10/11/19 07:33 PG Care Time/CCT Total # of Minutes Spent Total Time Spent with Patient: Total time spent is greater than 50% in coordinat ion of care (as documented) at patient's floor/unit and/or counseling patient: Coding Level of Care Code 59226 Subseq Hosp Care Lvl 3 Diagnoses HCAP (healthcare-associated pneumonia) J18.9 Acute kidney injury N17.9 Lung nodule seen on imaging study R91.1 Tobacco abuse Z72.0 COPD (chronic obstructive pulmonary disease) J44.9 Confusion and disorientation R41.0 Goals of care, counseling/discussion Z71.89 Hypomagnesemia E83.42
[2019-09-13] MEDS: MoRPHine SULFATE 2 MG/ML CARP IV PRN ×3 (04:51→10:45)
[2019-09-13 06:25] LABS: Hematocrit (blood only) 31.7 % (37-47); Hemoglobin 10.7 g/dL (12.0-16.0); Immature Granulocytes # (auto) 0.06 K/uL (0.00-0.02); Immature Granulocytes % (auto) 0.5 %; Lymphocytes # (auto) 0.64 K/uL (1.2-3.4); Lymphocytes % (auto) 5.1 %; Mean Corpuscular Hemoglobin 32.9 pg (25-34); Mean Corpuscular Hgb Conc 33.8 g/dL (32-36); Mean Corpuscular Volume 97.5 fL (80-100); Mean Platelet Volume 10.5 fL (7.4-10.4); Monocytes % (auto) 3.9 %; Neutrophils # (auto) 11.46 K/uL (1.4-6.5); Neutrophils % (auto) 90.5 %; Platelet Count 116 K/uL (130-400); RDW Coefficient of Variation 13.3 % (11.5-14.5); RDW Standard Deviation 46.7 fL (36.4-46.3); Red Blood Count 3.25 M/uL (4.2-5.4); White Blood Count 12.66 K/uL (4.8-10.8)
[2019-09-13 07:02] LABS: BUN Creatinine Ratio 41.5 (10-20); Calcium 9.6 mg/dl (8.5-10.1); Creatinine Clr Calc Pharmacy 74.1 ml/min; Est GFR (African American) 97.3; Est GFR (Non-African American) 83.9; Magnesium 2.1 mg/dl (1.8-2.4); Potassium 3.9 mmol/L (3.5-5.1)
[2019-09-13] MEDS: ALBUT/IPRATROP 3MG/0.5MG NEB 3 ML VIAL NEB SCH ×2 (07:19→11:07)
[2019-09-13] MEDS: methylPREDNISolone 40 MG in SYRINGE 0 ML IV SCH (08:24)
[2019-09-13] MEDS: CEFEPIME 2,000 MG in SYRINGE 7.5 ML IV SCH (08:24)
[2019-09-13] MEDS: lamoTRIgine 100 MG TAB PO SCH (08:27)
[2019-09-13] MEDS: PANTOprazole 40 MG TAB PO SCH (08:27)
[2019-09-13] MEDS: CITALOPRAM 40 MG TAB PO SCH (08:27)
[2019-09-13] MEDS: ENOXAPARIN INJ 40 MG/0.4 ML SYR SQ SCH (08:28)
[2019-09-13] MEDS: MONTELUKAST SODIUM 10 MG TABLET PO SCH (08:28)
[2019-09-13] MEDS: LORazepam 0.5 MG/1 ML VIAL IV PRN (09:13)
[2019-09-13] MEDS: MoRPHine SULF/NSS 250 MG/250 ML BTL IV PRN ×3 (12:10→19:04)
--- NOTE | 2019-09-13 17:53 | Hospitalist Progress Note ---
Date of Service September 13, 2019 Assessment & Plan (1) HCAP (healthcare-associated pneumonia): recent pneumonia, now with productive cough, confusion, pneumonia on CT will treat with Cefepime and Levaquin IV, MRSA swab negative Duonebs QID and q2 PRN continue gentle fluids at 80cc/hr, NSS as she is not eating patient in more distress today, Morphine PRN not working doubtful that she will recover from her pneumonia unless she would get intubated patient does not want intubated, friend Ismael confirmed this will transfer to medical floor, start her on comfort care, Morphine drip, Ativan PRN will place scopolamine patch called Ismael as well as her sister in law Lawrence to tell them of the patient's decline in status and plans for comfort they both agreed with plan (2) Acute kidney injury: Cr 1.9 at [place], received fluids likely prerenal as repeat Cr down to normal for two days childs placed hold lisinopril and avoid other nephrotoxins comfort measures now (3) Lung nodule seen on imaging study: 50-60 pack year history of smoking per patient's friend Ismael, patient knows about the lung mass wants no work up, no treatment, comfort would be her goal using Morphine for comfort (4) Tobacco abuse: still smokes a few cigarettes a day, heavy smoking history counseled on quitting but unlikely to stop smoking (5) COPD (chronic obstructive pulmonary disease): more wheezing on the right on 09/11, has mild COPD exacerbation treat with Solu Medrol, duonebs, antibiotics no improvement today, getting worse, transition to comfort care (6) Confusion and disorientation: patient agitated, confused, in distress cannot give me any details of recent history, does not remember coming to hospital per reports she was found down in her home, hypoxic on room air her friend Saschahayes talked to her on the phone, confirms that she is not herself use Ativan and Haldol PRN for agitation Morphine for respiratory distress (7) Goals of care, counseling/discussion: long discussion with patient's friend Ismael who is her primary contact on 09/10 after admission patient is aware of lung cancer, was even told she has brain mets she does not want work up, does not want treatment, she only wants to be comfortable she stated to Ismael on several occasions that she does not want life saving measures she has a living will filled out at her apartment but has not signed it made the patient DNR/DNI will use Haldol IM and Ativan IV PRN for aggitation use Morphine for any respiratory discomfort prognosis is very poor, unlikely to survive this hospitalization transition to comfort care today (8) Hypomagnesemia: replace IV today Admission and Anticipated Discharge Date Admission Date: September 11, 2019 Subjective patient very uncomfortable this morning, agitated in bed, accessory muscle use, labored breathing RN using Morphine PRN and Ativan PRN but not helping enough to keep her comfortable asked the patient if she was uncomfortable, she said yes asked her if she wanted to be comfortable, explained she would sleep a lot more, she asked to be made comfortable called her friend Ismael and told her that the patient would likely not survive the pneumonia, will place on morphine drip Ismael said that the patient would want to be kept comfortable called her sister in law Lawrence, she was tearful, agreed that patient should be comfortable transferred patient to medical floor, placed on Morphine drip, stopped antibiotics and Solu Medrol reviewed labs, WBC down to 12k, Cr 0.7, electrolytes stable Review of Systems Review of Systems: Unobtainable due to cognitive status Physical Exam Constitutional: + ill appearing, + frail appearing, + in distress (respiratory) and + combative; + uncooperative Eyes: PERRL, conjunctivae normal, anicteric sclerae ENMT: external ear and nose normal, oropharynx normal Neck: trachea midline, no thyromegaly Respiratory: + labored breathing, + cough and + pursed lip breathing Auscultation: + diminished lung sounds (right base), + crackles, + rhonchi and + wheezes (more on right); no rales Cardiovascular: Rate/Rhythm: regular rhythm and + tachycardic Heart Sounds: normal S1 and normal S2; no murmur Extremities: normal capillary refill; no edema Gastrointestinal (Abdomen): normal bowel sounds, soft, nontender, no hepatosplenomegaly Musculoskeletal: no cyanosis or clubbing, extremities motor strength 5/5 Skin: no rashes, warm and dry Neurologic: patellar DTR's 2+ bilat, sensation intact and PERRL, EOMI, accommodation nl, no face palsy, no dysarthria Psychiatric: Orientation: alert, oriented to person and + guarded; + not oriented to place, + not oriented to time and + uncooperative Lymphatic: no cervical or axillary lymphadenopathy Results & Data Results & Data ([facility]) Vital Signs (Past 12 Hours) Vital Signs Temp Pulse Resp BP Pulse Ox 09/13/19 12:23 36.6 C 115 H 20 143/73 H 91 09/13/19 11:07 112 H 24 92 09/13/19 07:52 36.4 C L 88 20 125/73 95 09/13/19 07:20 88 18 96 Laboratory Results Laboratory Results - last 24 hr 09/13/19 09/13/19 05:53 05:53 WBC 12.66 H RBC 3.25 L Hgb 10.7 L Hct 31.7 L MCV 97.5 MCH 32.9 MCHC 33.8 RDW Std Deviation 46.7 H RDW Coeff of Yosef 13.3 Plt Count 116 L MPV 10.5 H Immature Gran % (Auto) 0.5 Neut % (Auto) 90.5 Lymph % (Auto) 5.1 [place] % (Auto) 3.9 Eos % (Auto) 0.0 Baso % (Auto) 0.0 Neut # (Auto) 11.46 H Lymph # (Auto) 0.64 L [place] # (Auto) 0.50 Eos # (Auto) 0.00 Baso # (Auto) 0.00 Immature Gran # (Auto) 0.06 H Sodium 139 Potassium 3.9 Chloride 105 Carbon Dioxide 26 Anion Gap 8.0 BUN 29 H Creatinine 0.71 Est Cr Clr Drug Dosing 74.1 Est GFR ( Amer) 97.3 Est GFR (Non-Af Amer) 83.9 BUN/Creatinine Ratio 41.5 H Glucose 123 H Calcium 9.6 Magnesium 2.1 Medications Administered Current Inpatient Medications Diphenhydramine HCl (Benadryl) 25 mg IV Q6 PRN PRN Reason: Itching Stop: 10/12/19 16:54 Haloperidol Lactate (Haldol) 5 mg IM Q6H PRN PRN Reason: Anxiety/Agitation Stop: 10/11/19 14:51 Last Admin: 09/11/19 23:35 Dose: 5 mg Documented by: Lorazepam (Ativan) 0.5 mg in 1 mls @ 1 mls/min IV Q8H PRN PRN Reason: Agitation Stop: 10/11/19 15:11 Last Admin: 09/13/19 09:13 Dose: 1 mls/min Documented by: Morphine Sulfate (Morphine Sulf/Nss) 250 mg in 250 mls @ 2 mls/hr IV .Q96H PRN; Protocol PRN Reason: Pain Stop: 09/27/19 11:43 Last Admin: 09/13/19 16:08 Dose: 2 mls/hr Documented by: Ondansetron HCl (Zofran) 4 mg IV Q6H PRN PRN Reason: Nausea Stop: 10/11/19 07:33 PG Care Time/CCT Total # of Minutes Spent Total Time Spent: 36 Total Time Spent with Patient: Total time spent is greater than 50% in coordination of care (as documented) at patient's floor/unit and/or counseling patient: phone calls placed to patient's family and her friend Ismael examined patient on three separate occasions, making sure she was comfortable Coding Level of Care Code 71524 Subseq Hosp Care Lvl 3 Diagnoses HCAP (healthcare-associated pneumonia) J18.9 Acute kidney injury N17.9 Lung nodule seen on imaging study R91.1 Tobacco abuse Z72.0 COPD (chronic obstructive pulmonary disease) J44.9 Confusion and disorientation R41.0 Goals of care, counseling/discussion Z71.89 Hypomagnesemia E83.42
[2019-09-14] MEDS: MoRPHine SULF/NSS 250 MG/250 ML BTL IV PRN (06:52)
[2019-09-14] MEDS ORDERED: MoRPHine SULF/NSS 250 MG/250 ML BTL IV PRN (08:29)
[2019-09-14] MEDS: ATROPINE SULFATE 1% OP SOLN 5 ML BTL PO SCH ×5 (09:00→17:17)
--- NOTE | 2019-09-14 10:27 | Medical Student Progress Note ---
Date of Service September 14, 2019 Assessment & Plan (1) S/P TKR (total knee replacement): (2) Hospital acquired PNA: Continue antibiotic coverage with double coverage of psuedomonas (expected hospital aquired pneumonia) for comfort. Cefepime and Levoquin. Give IV NS for fluid resuscitation. WBC lowered from 16.6 on admission to 12 today. (3) Lung mass: Per friend Marisela she does not want treatment for mass. Hold any diagnostic or tx procedures. Discuss with Rita when she is oriented. (4) Acute kidney injury: Cr now in normal range at .71. BUN/Cr ratio significantly increased from 26 to 41.5 likely due to dehydration (no fluids overnight). Resume IV NS. (5) Disorientation: PRN haloperidol and ativan. Suspect improvement with lessening of infection. Subjective Rita is a 74 yo F admitted for pnuemonia complicated by a lung mass, MARLEY, and delirium. Due to mass, pneumonia will likely not resolve without intubation, and will recur. According to friend Marisela she does not want to tx for the mass, and states that Rita would want to be comfortable instead of intubation. Morphine was started to increase comfort and decrease work of breathing. Fluids were given for MARLEY and hydration. Haloperidol and ativan were started for delirium and agitation. Overnight she was given atropine to decrease mucousy secretions and work of breathing as well constant morphine. She is satting well at 91% RR 20 at 6L/min however she still has agonal breathing. She had no intake of fluids overnight. Today she is unarousable. I tried shaking her and nearly yelling her name several times before deciding to allow her to sleep. She appears to be in a bad condition. Review of Systems Review of Systems: Unobtainable due to reduced consciousness Physical Exam Constitutional: + ill appearing, + obese and + lethargic ENMT: external ear and nose normal, oropharynx normal Neck: trachea midline, no thyromegaly normal visual inspection Thyroid: normal thyroid Respiratory: + respiratory distress and normal percussion Auscultation: + crackles, + rales and + egophony Cardiovascular: RRR, no murmur, no edema Gastrointestinal (Abdomen): Inspection/Auscultation: abdomen normal to inspection Percussion/Palpation: abdomen soft Musculoskeletal: no cyanosis or clubbing, extremities motor strength 5/5 Skin: no rashes, warm and dry Neurologic: PERRL, EOMI, accommodation nl, no face palsy, no dysarthria normal touch/pain/proprioception Lymphatic: no cervical or axillary lymphadenopathy
--- NOTE | 2019-09-14 19:02 | Death Pronouncement Note ---
Date of Service September 14, 2019 Pronouncement Note Admission Date Admission Date: September 11, 2019 No response to verbal or noxious stimulation. No heart tones or breath sounds. Bilateral pupils nonreactive. Time of 6:56 pm. Contributing Factors (1) S/P TKR (total knee replacement): Contributing factors: Factors contributing to include a health-care associated pneumonia and an obstructing lung mass. (2) Hospital acquired PNA: (3) Lung mass: (4) Acute kidney injury: (5) Disorientation: Additional Data Attending physician: Beka Knight DO Resident Activity Tracking Resident Involvement: Resident Care Provided Care Provided: Adult Hospital Medicine
--- NOTE | 2019-09-15 22:07 | Discharge Summary ---
Date of Service September 14, 2019 Admission HPI Per Admitting Provider 74 yo female with history of COPD who was transferred early this morning to [facility] from [place] ED. The patient was brought to the ED by EMS after she was found on the floor of her home, she was confused, decreased responsiveness and her oxygen saturation was reported to be in the low 70's on room air. She was rushed to the ED at [place]. Her vitals were stable, no fever. CT of the chest showed a right upper lobe mass with a right sided pleural effusion. There was also evidence of pneumonia on the right side. Per records, she was just treated for a right sided obstructive pneumonia at [place] a few weeks ago. Transfer was requested because there were no beds at [place]. She was given one liter NSS and Cefepime and Vancomycin. Upon her arrival the patient stated that she just wanted to go home, she did not know why she was in the hospital, she thought she was in [facility]. She could not provide any real history. I discussed the CT chest findings of the mass and she seemed to know that she had a potential lung cancer but could not provide any further history. I called her primary contact, her best friend Ismael Herrmann. She could tell me what the patient has told her over the past weeks, she admits that she never has gone to the doctor's office with her and she has not spoken directly to her doctors in the [facility] system. She said that the patient has told her that she has a lesion in her lung, likely lung cancer. She also has told her that she had imaging of her brain and her doctor told her that she has brain mets. She has had weakness in her right arm and hand the past three weeks and she was told that this is due to the mets. The patient has been very clear to Ismael that she wants nothing done for the lung lesion. She does not want any biopsy, she does not want any treatment. She has been clear that she wants to be comfortable above all else. I asked her if she has a living will and if Ismael is her POA. She says that she has not completed that paper work but she knows that she has a living will form in her apartment that she has not signed. She said that she has clearly told her that she would not want heroic measures, she should be a DNR, DNI. I called the patient's brother Kit. He is the only living relative. He has had two strokes and a heart attack in the past year. His told me that he is forgetful. She says that they have not seen the patient in some time because Kit cannot drive, they live in the [place] area. His confirmed that Ismael is the patient's closest friend and knows her wishes and knows what has been going on recently better than they know. Principal Diagnosis Pneumonia, acute hypoxic respiratory failure Discharge Exam no pulse, no breath sounds, not breathing, pupils fixed, unresponsive Discharge Data Allergies Allergy/AdvReac Type Severity Reaction Status Date / Time adenosine Allergy Unknown Verified 09/12/19 17:17 ticagrelor [From Brilinta] Allergy Difficulty Verified 09/12/19 17:17 Breathing ibuprofen AdvReac Unknown GI upset Verified 11/13/14 09:06 celecoxib AdvReac Gastrointestinal Verified 09/12/19 17:17 Upset morphine AdvReac Rash Verified 09/12/19 17:17 Consultations 09/11/19 07:36 Consult Case Management - Discharge Planning Routine 09/11/19 10:54 Consult Pulmonology Routine Hospital Course (1) HCAP (healthcare-associated pneumonia): (1) HCAP (healthcare-associated pneumonia): recent pneumonia, now with productive cough, confusion, pneumonia on CT treated with Cefepime and Levaquin IV, MRSA swab negative Duonebs QID and q2 PRN fluids at 80cc/hr, NSS as she is not eating patient in more distress on 09/12, Morphine PRN not working doubtful that she will recover from her pneumonia unless she would get intubated patient does not want intubated, friend Ismael confirmed this transfer to medical floor, start her on comfort care, Morphine drip, Ativan PRN Atropine PRN called Ismael as well as her sister in law Melinda on 09/12 to tell them of the patient's decline in status and plans for comfort they both agreed with plan patient peacefully on 09/13, family notified of her passing body will be donated to science per patient's wishes (2) Acute kidney injury: Cr 1.9 at [place], received fluids likely prerenal as repeat Cr down to normal for three days childs placed hold lisinopril and avoid other nephrotoxins comfort measures now (3) Lung nodule seen on imaging study: 50-60 pack year history of smoking per patient's friend Ismael, patient knows about the lung mass wants no work up, no treatment, comfort would be her goal using Morphine for comfort (4) Tobacco abuse: still smokes a few cigarettes a day, heavy smoking history counseled on quitting but unlikely to stop smoking (5) COPD (chronic obstructive pulmonary disease): more wheezing on the right on 09/11, has mild COPD exacerbation treat with Solu Medrol, duonebs, antibiotics no improvement, getting worse, transition to comfort care (6) Confusion and disorientation: patient agitated, confused, in distress cannot give me any details of recent history, does not remember coming to hospital per reports she was found down in her home, hypoxic on room air her friend Ismael talked to her on the phone, confirms that she is not herself use Ativan and Haldol PRN for agitation Morphine for respiratory distress (7) Goals of care, counseling/discussion: long discussion with patient's friend Ismael who is her primary contact on 09/10 after admission patient is aware of lung cancer, was even told she has brain mets she does not want work up, does not want treatment, she only wants to be co mfortable she stated to Ismael on several occasions that she does not want life saving measures she has a living will filled out at her apartment but has not signed it made the patient DNR/DNI will use Haldol IM and Ativan IV PRN for aggitation use Morphine for any respiratory discomfort prognosis is very poor, unlikely to survive this hospitalization transition to comfort care today (2) Lung mass: (3) Acute kidney injury: (4) Tobacco abuse: (5) Confusion and disorientation: Total Time Total Time Spent Total Time Spent (In Minutes): 20 minutes Total Time Includes: Examination of the Patient and Other (several phone calls with friends/family) Discharge Plan Discharge Items Patient Disposition: Reason For Visit: PNEUMONIA Follow-up/Referrals: [facility] [Primary Care Provider] - Stand-Alone Forms: [facility], Smoking Cessation Admission Data Admit Date/Time: 09/11/19 07:35 Other DC Date/Time DO NOT enter until pt leaves facility: 09/14/19 21:15 Coding Level of Care Code D/C Day Management <30 mins Diagnoses HCAP (healthcare-associated pneumonia) J18.9 Lung mass R91.8 Acute kidney injury N17.9 Tobacco abuse Z72.0 Confusion and disorientation R41.0
== END 2019-09-14 21:15 | disposition expired | DRG 177 ==
LOC: SUATTDRO 07:39 → 2S 07:39 → 2N 09-13 09:47 → 2W 09-13 13:57